=== PATIENT | male | born 1980 | race Caucasian/White ===

== ENCOUNTER 2017-07-31 14:34 | Emergency (ER) | payer MEDICAID ==
[~2017-07-31] VITALS: Ht 180.3 cm; Wt 117.9 kg
[2017-07-31] MEDS ORDERED: TESSALON PERLE100 M1 PO (14:48)
[2017-07-31] MEDS ORDERED: CLINDAMYCIN HC300 MG PO (14:48)
== END 2017-07-31 14:55 | disposition home or self-care (01) ==
LOC: ED 14:34
DX: L60.0 Ingrowing nail (principal); J06.9 Acute upper respiratory infection, unspecified; L08.9 Local infection of the skin and subcutaneous tissue, unspecified; F17.200 Nicotine dependence, unspecified, uncomplicated; Z88.0 Allergy status to penicillin

== ENCOUNTER 2017-08-11 15:49 | Emergency (ER) | payer MEDICAID ==
[~2017-08-11] VITALS: Ht 177.8 cm; Wt 90.7 kg
[~2017-08-11 15:49] MED LIST: CLINDAMYCIN HC300 MG PO; TESSALON PERLE100 M1 PO
== END 2017-08-11 16:46 | disposition home or self-care (01) ==
LOC: ED 15:49
DX: R05 Cough (principal); F17.210 Nicotine dependence, cigarettes, uncomplicated; Z88.0 Allergy status to penicillin